=== PATIENT | male | born 1960 | race Caucasian/White ===

== ENCOUNTER 2018-06-09 09:45 | Emergency (ER) | payer MEDICARE ==
[~2018-06-09] VITALS: Ht 182.9 cm; Wt 127.0 kg
[~2018-06-09 09:45] MED LIST: BACL20TA PO; LEVO500T59 PO; LORA10CA PO; NITR100C6 PO; OXYB10TA PO
--- NOTE | 2018-06-09 09:57 | PHYS DOC ---
Adult General Chief Complaint Chief Complaint: suprapubic catheter problem HPI HPI Patient is a 57 year old male with history of quadriplegia and indwelling suprapubic catheter for more than 10 years brought in by EMS for replacement of suprapubic catheter. Patient states his home health nurse tried to change his suprapubic catheter but was not able to insert a new catheter. She denies abdominal pain, nausea and vomiting, fever and chills. Review of Systems Review of Systems Constitutional: Denies fever or chills [] Eyes: Denies change in visual acuity, redness, or eye pain [] HENT: Denies nasal congestion or sore throat [] Respiratory: Denies cough or shortness of breath [] Cardiovascular: No additional information not addressed in HPI [] GI: Denies abdominal pain, nausea, vomiting, bloody stools or diarrhea [] : Denies dysuria or hematuria [] Musculoskeletal: Denies back pain or joint pain [] Integument: Denies rash or skin lesions [] Neurologic: Denies headache, focal weakness or sensory changes [] Endocrine: Denies polyuria or polydipsia [] All other systems were reviewed and found to be within normal limits, except as documented in this note. Current Medications Current Medications Current Medications Medications (Trade) Dose Ordered Sig/Dana Start Time Stop Time Status Last Admin Dose Admin Baclofen (Lioresal) 20 mg 1X ONCE 06/09/18 13:00 06/09/18 13:01 DC 06/09/18 13:32 20 MG Ciprofloxacin (Cipro) 500 mg 1X ONCE 06/09/18 17:15 06/09/18 17:17 DC 06/09/18 17:15 500 MG Allergies Allergies Allergies Coded Allergies Type Severity Reaction Last Updated Verified No Known Drug Allergies 06/22/13 No Physical Exam Physical Exam Constitutional: Well developed, well nourished, no acute distress, non-toxic appearance. [] HENT: Normocephalic, atraumatic Eyes: PERRLA, EOMI, conjunctiva normal, no discharge. [] Neck: Normal range of motion, no tenderness, supple, no stridor. [] Cardiovascular:Heart rate regular rhythm, no murmur [] Lungs & Thorax: Bilateral breath sounds clear to auscultation [] Abdomen: Bowel sounds normal, soft, no tenderness, no masses, no pulsatile masses. [] Skin: Warm, dry, no erythema, no rash. [] Back: No tenderness, no CVA tenderness. [] Extremities: Quadriplegic Neurologic: Alert and oriented X 3, quadriplegic with partial movement of upper extremity Psychologic: Affect normal, judgement normal, mood normal. [] Current Patient Data Vital Signs Vital Signs Date Time Temp Pulse Resp B/P (MAP) Pulse Ox O2 Delivery O2 Flow Rate FiO2 06/09/18 09:50 97.8 74 18 130/77 (94) 94 Room Air 97.8 EKG EKG [] Radiology/Procedures Radiology/Procedures [] Course & Med Decision Making Course & Med Decision Making Evaluation of patient in ER showed 57-year-old male patient with quadriplegia and suprapubic catheter in place brought in because of problems with positional supple catheter at home. I tried to insert the suprapubic catheter without success. to on-call urologist was consulted at 1016 and was able to insert the suprapubic catheter. Patient was discharged home with ambulance. Dragon Disclaimer Dragon Disclaimer This electronic medical record was generated, in whole or in part, using a voice recognition dictation system. Departure Departure Impression: Primary Impression: Encounter for suprapubic catheter care Additional Impression: Obstruction of suprapubic catheter Disposition: HOME, SELF-CARE (at 1439) Condition: IMPROVED Referrals: SERENITY SMITH MD (PCP) JEB OAKLEY MD Patient Instructions: Suprapubic Catheter Home Guide, Suprapubic Catheter Replacement Additional Instructions: Follow-up with Dr. Baker urologist on-call for changing the catheter as instructed Follow-up with your primary care physician in 3-5 days Return to ER if not getting better Scripts Ciprofloxacin Hcl (CIPRO) 250 Mg Tablet 1 TAB PO BID for infection, #6 TAB Prov: TROY RAMOS MD 06/09/18 Problem Qualifiers Additional Impression: Obstruction of suprapubic catheter Encounter type: initial encounter Qualified Codes: T83.090A - Other mechanical complication of cystostomy catheter, initial encounter TROY RAMOS MD Jun 09, 2018 09:57
[2018-06-09] MEDS ORDERED: BACLOFEN 10 MG TABLET. PO ONE (13:00)
[2018-06-09] MEDS ORDERED: CIPR250T30 PO (14:42)
--- NOTE | 2018-06-09 15:57 | PDOC4 ---
PROCEDURE Procedure Called to see patient re: unable to replace SP catheter. He has a neurogenic bladder, SP tube changed every 3 weeks by home health nurse for the past 10 years. Today they were unable to replace the catheter. Multiple attempts to place a 14 and 16 Fr catheter was not successful. A wire was passed into the bladder through the SP tract and the SP tract was then dilated to 18 Fr. Catheter passage was still difficult. Eventually a 14 Fr catheter was placed w ith the aid of a catheter guide. Bleeding was minimal. Proper catheter position was verified by irrigating the catheter. The bladder was noted to be very small capacity. No complications. F/U in 3 weeks in my clinic for next catheter change. JEB OAKLEY MD Jun 09, 2018 15:57
[2018-06-09] MEDS ORDERED: CIPROFLOXACIN HCL 250 MG TABLET. PO ONE (17:15)
[2018-06-09 17:30] VITALS: BP 125/85
== END 2018-06-09 18:09 | disposition home or self-care (01) ==
LOC: ER 09:45
DX: T83.090A Other mechanical complication of cystostomy catheter, initial encounter (principal); Y83.3 Surgical operation with formation of external stoma as the cause of abnormal reaction of the patient, or of later complication, without mention of misadventure at the time of the procedure; Y92.89 Other specified places as the place of occurrence of the external cause
CPT/HCPCS: 51705; 99283; 99284-25